=== PATIENT | female | born 1940 | race Caucasian/White ===

== ENCOUNTER 2022-05-18 17:00 | Inpatient (IN) ==
[2022-05-18] MEDS ORDERED: SODIUM CHLORIDE 0.9% 500 ML IV STA (17:55)
[2022-05-18] MEDS ORDERED: DILTIAZEM 50 MG/10 ML VIAL IV STA (17:56)
[2022-05-18 18:06] LABS: Basophils % 0.5 % (0.0-0.8); Hematocrit 26.6 VOL% (35.7-47.0); Hemoglobin 8.4 GM/DL (12.0-16.0); Immature Granulocytes % 0.2 %; Immature Granulocytes Absolute 0.02 #; Lymphocytes # 2.6 10*3/uL (1.4-4.0); Lymphocytes % 31.1 % (21.3-54.2); Mean Corpuscular HGB Conc 31.6 GM/DL (32-36); Mean Corpuscular Volume 89.6 FL (87-102); Mean Platelet Volume 10.3 FL (9.6-12.0); Monocytes # 0.7 10*3/uL (0.11-0.8); Neutrophils % 60.2 % (38.7-73.9); Platelet Count 359 T/CUMM (130-400); Red Blood Count 2.97 MC/CUMM (3.8-5.5); Red Cell Distribution Width 13.4 % (9.3-17.3); White Blood Count 8.37 T/CUMM (4-12)
[2022-05-18 18:13] LABS: INR 0.9; PT Patient Result 9.9 SECS (10.1-12.1)
[2022-05-18 18:28] LABS: Alanine Aminotransferase 18 U/L (13-56); Albumin 3.4 G/DL (3.4-5.0); Alkaline Phosphatase 89 U/L (45-117); Aspartate Amino Transferase 15 U/L (0-37); Bilirubin,Total < 0.39 MG/DL (0.20-1.00); Blood Urea Nitrogen 35 MG/DL (7-18); Calcium 9.8 MG/DL (8.5-10.1); Carbon Dioxide 28 MMOL/L (21-32); Chloride 106 MMOL/L (98-107); Glucose 150 MG/DL (74-106); Osmolality,Calculated 293.1 MOS/KG (273-304); Sodium 142 MMOL/L (136-145); Total Protein 6.4 G/DL (6.4-8.2)
[2022-05-18] MEDS ORDERED: MORPHINE 2 MG/1 ML SYRINGE IV PRN (20:02)
[2022-05-18] MEDS ORDERED: ONDANSETRON 4 MG/2 ML VIAL IV PRN (20:02)
[2022-05-18] MEDS ORDERED: hydrALAZINE 20 MG/1 ML VIAL IV PRN (20:02)
[2022-05-18] MEDS ORDERED: ACETAMINOPHEN 325 MG TABLET PO PRN (20:02)
[2022-05-18] MEDS ORDERED: FUROSEMIDE 40 MG/4 ML VIAL IV STA ×2 (20:16→20:41)
[2022-05-18 21:13] LABS: % Iron Saturation 5.2 % (18-50); Ferritin 7.9 ng/mL (8-252)
[2022-05-18 21:14] LABS: Folate > 24.00 NG/ML (5.38-24.0); Vitamin B12 644 PG/ML (211-911)
[2022-05-18 21:17] LABS: Thyroid Stimulating Hormone 0.978 uIU/ml (0.358-3.74)
[2022-05-18] MEDS: GABAPENTIN 100 MG CAPSULE PO SCH (21:26)
[2022-05-18] MEDS: PANTOPRAZOLE 40 MG VIAL IV SCH (21:27)
[2022-05-19 05:47] LABS: Basophils % 0.6 % (0.0-0.8); Hemoglobin 7.4 GM/DL (12.0-16.0); Immature Granulocytes % 0.3 %; Immature Granulocytes Absolute 0.02 #; Lymphocytes # 2.2 10*3/uL (1.4-4.0); Lymphocytes % 30.9 % (21.3-54.2); Mean Corpuscular HGB Conc 29.6 GM/DL (32-36); Mean Corpuscular Volume 93.3 FL (87-102); Mean Platelet Volume 10.5 FL (9.6-12.0); Monocytes # 0.6 10*3/uL (0.11-0.8); Monocytes % 7.7 % (1.7-12.7); Neutrophils % 60.5 % (38.7-73.9); Platelet Count 332 T/CUMM (130-400); Red Blood Count 2.68 MC/CUMM (3.8-5.5); Red Cell Distribution Width 13.6 % (9.3-17.3); White Blood Count 7.26 T/CUMM (4-12)
[2022-05-19] MEDS ORDERED: SODIUM CHLORIDE 0.9% 1,000 ML IV PRN (06:16)
[2022-05-19 06:17] LABS: Calcium 9.5 MG/DL (8.5-10.1); Osmolality,Calculated 293.1 MOS/KG (273-304); Potassium 4.4 MMOL/L (3.5-5.1)
[2022-05-19] MEDS: LEVOTHYROXINE 150 MCG TABLET PO SCH (08:14)
[2022-05-19] MEDS: CITALOPRAM 40 MG TABLET PO SCH (08:14)
[2022-05-19] MEDS: CHOLECALCIFEROL 1,000 UNIT TABLET PO SCH (08:15)
[2022-05-19] MEDS: GABAPENTIN 100 MG CAPSULE PO SCH ×2 (08:15→21:33)
[2022-05-19] MEDS: EZETIMIBE 10 MG TABLET PO SCH (08:15)
[2022-05-19] MEDS: ROSUVASTATIN 10 MG TABLET PO SCH (08:15)
[2022-05-19] MEDS: PANTOPRAZOLE 40 MG VIAL IV SCH ×2 (09:39→21:33)
[2022-05-19 11:47] LABS: Hematocrit 24.5 VOL% (35.7-47.0); Hemoglobin 7.7 GM/DL (12.0-16.0)
[2022-05-19] MEDS ORDERED: BISACODYL 5 MG TABLET PO ONE (12:00)
[2022-05-19] MEDS: DILTIAZEM CD 120 MG CAPSULE PO SCH (14:39)
[2022-05-19] MEDS ORDERED: POLYETHYLENE GLYCOL POWDER 255 GM BOTTLE PO ONE ×2 (18:00→20:00)
[2022-05-19 22:05] LABS: Hematocrit 29.2 VOL% (35.7-47.0); Hemoglobin 9.3 GM/DL (12.0-16.0)
[2022-05-20] MEDS: LEVOTHYROXINE 150 MCG TABLET PO SCH (05:04)
[2022-05-20 05:22] LABS: Basophils % 0.4 % (0.0-0.8); Hematocrit 32.4 VOL% (35.7-47.0); Hemoglobin 10.3 GM/DL (12.0-16.0); Immature Granulocytes % 0.2 %; Immature Granulocytes Absolute 0.02 #; Lymphocytes # 2.4 10*3/uL (1.4-4.0); Lymphocytes % 26.4 % (21.3-54.2); Mean Corpuscular HGB Conc 31.8 GM/DL (32-36); Mean Corpuscular Volume 88.5 FL (87-102); Mean Platelet Volume 10.3 FL (9.6-12.0); Monocytes # 0.6 10*3/uL (0.11-0.8); Monocytes % 6.8 % (1.7-12.7); Neutrophils % 66.2 % (38.7-73.9); Platelet Count 354 T/CUMM (130-400); Red Blood Count 3.66 MC/CUMM (3.8-5.5); Red Cell Distribution Width 13.8 % (9.3-17.3); White Blood Count 9.12 T/CUMM (4-12)
[2022-05-20 05:23] LABS: INR 0.9; PT Patient Result 10.2 SECS (10.1-12.1)
[2022-05-20 05:33] LABS: Calcium 9.7 MG/DL (8.5-10.1); Osmolality,Calculated 285.4 MOS/KG (273-304); Potassium 3.8 MMOL/L (3.5-5.1)
[2022-05-20] MEDS ORDERED: POLYETHYLENE GLYCOL POWDER 255 GM BOTTLE PO ONE (11:18)
[2022-05-20] MEDS: EZETIMIBE 10 MG TABLET PO SCH (12:07)
[2022-05-20] MEDS: CITALOPRAM 40 MG TABLET PO SCH (12:07)
[2022-05-20] MEDS: CHOLECALCIFEROL 1,000 UNIT TABLET PO SCH (12:07)
[2022-05-20] MEDS: GABAPENTIN 100 MG CAPSULE PO SCH ×2 (12:08→20:37)
[2022-05-20] MEDS: DILTIAZEM CD 120 MG CAPSULE PO SCH (12:08)
[2022-05-20] MEDS: ROSUVASTATIN 10 MG TABLET PO SCH (12:08)
[2022-05-20] MEDS: PANTOPRAZOLE 40 MG VIAL IV SCH ×2 (12:10→20:36)
[2022-05-20] MEDS: LACTATED RINGERS 1,000 ML IV SCH (12:10)
[2022-05-20] MEDS: FERRIC GLUCONATE COMPLEX 125 MG in SODIUM CHLORIDE 0.9% 100 ML IV SCH (20:36)
[2022-05-21 03:20] LABS: Basophils % 0.2 % (0.0-0.8); Hemoglobin 9.2 GM/DL (12.0-16.0); Immature Granulocytes % 0.3 %; Immature Granulocytes Absolute 0.03 #; Lymphocytes # 1.2 10*3/uL (1.4-4.0); Lymphocytes % 13.3 % (21.3-54.2); Mean Corpuscular HGB Conc 31.7 GM/DL (32-36); Mean Corpuscular Volume 88.1 FL (87-102); Mean Platelet Volume 10.1 FL (9.6-12.0); Monocytes # 0.8 10*3/uL (0.11-0.8); Monocytes % 8.4 % (1.7-12.7); Neutrophils % 77.8 % (38.7-73.9); Platelet Count 321 T/CUMM (130-400); Red Blood Count 3.29 MC/CUMM (3.8-5.5); Red Cell Distribution Width 13.6 % (9.3-17.3); White Blood Count 8.98 T/CUMM (4-12)
[2022-05-21 03:27] LABS: Calcium 9.5 MG/DL (8.5-10.1); Potassium 3.6 MMOL/L (3.5-5.1)
[2022-05-21 05:10] LABS: Arterial Base Excess iSTAT 4 MMOL/L (-2.5-2.5); Arterial Bicarbonate iSTAT 27.5 MMOL/L (20-26); Arterial O2 Saturation iSTAT 96 % (95-100); Arterial PCO2 iSTAT 39 MM HG (35-48); Arterial PO2 iSTAT 79 MM HG (80-95); Arterial Total CO2 iSTAT 29 MMO/L (23-27); Arterial pH iSTAT 7.459 (7.35-7.45)
[2022-05-21] MEDS: LEVOTHYROXINE 150 MCG TABLET PO SCH (06:13)
[2022-05-21] MEDS ORDERED: ALBUTEROL/IPRATROPIUM 3 ML NEB RESP TX ONE (09:21)
[2022-05-21] MEDS ORDERED: LIDOCAINE 2% 5 ML VIAL ONE (10:16)
[2022-05-21] MEDS ORDERED: propofoL 200 MG/20 ML VIAL IV ONE (10:16)
[2022-05-21] MEDS ORDERED: ETOMIDATE 20 MG/10 ML VIAL IV ONE (10:16)
[2022-05-21] MEDS ORDERED: MIDAZOLAM 2 MG/2 ML VIAL ONE (10:29)
[2022-05-21] MEDS: LACTATED RINGERS 1,000 ML IV SCH (11:08)
[2022-05-21] MEDS: DILTIAZEM CD 120 MG CAPSULE PO SCH (16:49)
[2022-05-21] MEDS: CITALOPRAM 40 MG TABLET PO SCH (16:49)
[2022-05-21] MEDS: EZETIMIBE 10 MG TABLET PO SCH (16:49)
[2022-05-21] MEDS: GABAPENTIN 100 MG CAPSULE PO SCH ×2 (16:49→21:17)
[2022-05-21] MEDS: ROSUVASTATIN 10 MG TABLET PO SCH (16:49)
[2022-05-21] MEDS: PANTOPRAZOLE 40 MG VIAL IV SCH ×2 (16:50→21:16)
[2022-05-21] MEDS: CHOLECALCIFEROL 1,000 UNIT TABLET PO SCH (16:50)
[2022-05-21] MEDS: FERRIC GLUCONATE COMPLEX 125 MG in SODIUM CHLORIDE 0.9% 100 ML IV SCH (16:54)
[2022-05-22 05:20] LABS: Basophils % 0.2 % (0.0-0.8); Hematocrit 28.2 VOL% (35.7-47.0); Hemoglobin 8.6 GM/DL (12.0-16.0); Immature Granulocytes % 0.6 %; Immature Granulocytes Absolute 0.06 #; Lymphocytes # 1.4 10*3/uL (1.4-4.0); Lymphocytes % 14.8 % (21.3-54.2); Mean Corpuscular HGB Conc 30.5 GM/DL (32-36); Mean Corpuscular Volume 90.7 FL (87-102); Monocytes % 10.8 % (1.7-12.7); Neutrophils % 73.6 % (38.7-73.9); Platelet Count 294 T/CUMM (130-400); Red Blood Count 3.11 MC/CUMM (3.8-5.5); Red Cell Distribution Width 14.1 % (9.3-17.3); White Blood Count 9.41 T/CUMM (4-12)
[2022-05-22] MEDS: LEVOTHYROXINE 150 MCG TABLET PO SCH (05:38)
[2022-05-22 05:44] LABS: Osmolality,Calculated 290.8 MOS/KG (273-304); Potassium 3.7 MMOL/L (3.5-5.1)
[2022-05-22] MEDS ORDERED: ALBUTEROL/IPRATROPIUM 3 ML NEB RESP TX STA (09:17)
[2022-05-22] MEDS: LACTATED RINGERS 1,000 ML IV SCH (09:18)
[2022-05-22] MEDS: CHOLECALCIFEROL 1,000 UNIT TABLET PO SCH (11:49)
[2022-05-22] MEDS: ROSUVASTATIN 10 MG TABLET PO SCH (11:49)
[2022-05-22] MEDS: PANTOPRAZOLE 40 MG VIAL IV SCH ×2 (11:50→20:25)
[2022-05-22] MEDS: DILTIAZEM CD 120 MG CAPSULE PO SCH (11:50)
[2022-05-22] MEDS: GABAPENTIN 100 MG CAPSULE PO SCH ×2 (11:50→20:25)
[2022-05-22] MEDS: CITALOPRAM 40 MG TABLET PO SCH (11:50)
[2022-05-22] MEDS: EZETIMIBE 10 MG TABLET PO SCH (11:50)
[2022-05-22] MEDS: FERRIC GLUCONATE COMPLEX 125 MG in SODIUM CHLORIDE 0.9% 100 ML IV SCH (11:50)
[2022-05-23 05:19] LABS: Basophils % 0.3 % (0.0-0.8); Hematocrit 28.4 VOL% (35.7-47.0); Hemoglobin 8.7 GM/DL (12.0-16.0); Immature Granulocytes % 0.3 %; Immature Granulocytes Absolute 0.03 #; Lymphocytes # 1.7 10*3/uL (1.4-4.0); Lymphocytes % 18.4 % (21.3-54.2); Mean Corpuscular HGB Conc 30.6 GM/DL (32-36); Mean Corpuscular Volume 91.9 FL (87-102); Mean Platelet Volume 10.2 FL (9.6-12.0); Monocytes # 0.9 10*3/uL (0.11-0.8); Monocytes % 9.4 % (1.7-12.7); Neutrophils % 71.6 % (38.7-73.9); Platelet Count 282 T/CUMM (130-400); Red Blood Count 3.09 MC/CUMM (3.8-5.5); White Blood Count 9.17 T/CUMM (4-12)
[2022-05-23 05:36] LABS: Calcium 9.4 MG/DL (8.5-10.1); Osmolality,Calculated 284.3 MOS/KG (273-304); Potassium 3.8 MMOL/L (3.5-5.1)
[2022-05-23] MEDS: LEVOTHYROXINE 150 MCG TABLET PO SCH (06:01)
[2022-05-23] MEDS: ROSUVASTATIN 10 MG TABLET PO SCH (09:06)
[2022-05-23] MEDS: EZETIMIBE 10 MG TABLET PO SCH (09:07)
[2022-05-23] MEDS: CITALOPRAM 40 MG TABLET PO SCH (09:07)
[2022-05-23] MEDS: CHOLECALCIFEROL 1,000 UNIT TABLET PO SCH (09:07)
[2022-05-23] MEDS: DILTIAZEM CD 120 MG CAPSULE PO SCH (09:08)
[2022-05-23] MEDS: GABAPENTIN 100 MG CAPSULE PO SCH ×2 (09:09→21:07)
[2022-05-23] MEDS: PANTOPRAZOLE 40 MG VIAL IV SCH ×2 (09:09→21:07)
[2022-05-23] MEDS: FERRIC GLUCONATE COMPLEX 125 MG in SODIUM CHLORIDE 0.9% 100 ML IV SCH (09:40)
[2022-05-24 04:46] LABS: Basophils % 0.4 % (0.0-0.8); Hematocrit 27.4 VOL% (35.7-47.0); Hemoglobin 8.4 GM/DL (12.0-16.0); Immature Granulocytes % 0.4 %; Immature Granulocytes Absolute 0.04 #; Lymphocytes # 1.5 10*3/uL (1.4-4.0); Lymphocytes % 16.7 % (21.3-54.2); Mean Corpuscular HGB Conc 30.7 GM/DL (32-36); Mean Corpuscular Volume 91.3 FL (87-102); Mean Platelet Volume 10.1 FL (9.6-12.0); Monocytes # 0.8 10*3/uL (0.11-0.8); Monocytes % 8.8 % (1.7-12.7); Neutrophils % 73.7 % (38.7-73.9); Platelet Count 285 T/CUMM (130-400); Red Cell Distribution Width 14.4 % (9.3-17.3); White Blood Count 9.16 T/CUMM (4-12)
[2022-05-24] MEDS: LEVOTHYROXINE 150 MCG TABLET PO SCH (05:02)
[2022-05-24 05:07] LABS: Osmolality,Calculated 285.1 MOS/KG (273-304); Potassium 3.6 MMOL/L (3.5-5.1)
[2022-05-24] MEDS: GABAPENTIN 100 MG CAPSULE PO SCH ×2 (10:35→20:27)
[2022-05-24] MEDS: CHOLECALCIFEROL 1,000 UNIT TABLET PO SCH (10:35)
[2022-05-24] MEDS: CITALOPRAM 40 MG TABLET PO SCH (10:35)
[2022-05-24] MEDS: PANTOPRAZOLE 40 MG VIAL IV SCH ×2 (10:35→20:27)
[2022-05-24] MEDS: ROSUVASTATIN 10 MG TABLET PO SCH (10:35)
[2022-05-24] MEDS: EZETIMIBE 10 MG TABLET PO SCH (10:35)
[2022-05-24] MEDS: DILTIAZEM CD 120 MG CAPSULE PO SCH (10:35)
[2022-05-24] MEDS: FERRIC GLUCONATE COMPLEX 125 MG in SODIUM CHLORIDE 0.9% 100 ML IV SCH (10:36)
[2022-05-25] MEDS: LEVOTHYROXINE 150 MCG TABLET PO SCH (05:05)
[2022-05-25 06:17] LABS: Basophils % 0.2 % (0.0-0.8); Eosinophils % 0.1 % (0.00-10.9); Hematocrit 28.1 VOL% (35.7-47.0); Hemoglobin 8.6 GM/DL (12.0-16.0); Immature Granulocytes % 0.3 %; Immature Granulocytes Absolute 0.03 #; Lymphocytes # 1.3 10*3/uL (1.4-4.0); Lymphocytes % 14.1 % (21.3-54.2); Mean Corpuscular HGB Conc 30.6 GM/DL (32-36); Mean Corpuscular Volume 92.4 FL (87-102); Mean Platelet Volume 10.8 FL (9.6-12.0); Monocytes # 0.8 10*3/uL (0.11-0.8); Monocytes % 8.5 % (1.7-12.7); Neutrophils % 76.8 % (38.7-73.9); Platelet Count 264 T/CUMM (130-400); Red Blood Count 3.04 MC/CUMM (3.8-5.5); Red Cell Distribution Width 14.6 % (9.3-17.3); White Blood Count 9.27 T/CUMM (4-12)
[2022-05-25 06:36] LABS: Calcium 9.5 MG/DL (8.5-10.1); Osmolality,Calculated 289.8 MOS/KG (273-304); Potassium 3.8 MMOL/L (3.5-5.1)
[2022-05-25] MEDS: ROSUVASTATIN 10 MG TABLET PO SCH (09:21)
[2022-05-25] MEDS: EZETIMIBE 10 MG TABLET PO SCH (09:22)
[2022-05-25] MEDS: CITALOPRAM 40 MG TABLET PO SCH (09:22)
[2022-05-25] MEDS: CHOLECALCIFEROL 1,000 UNIT TABLET PO SCH (09:23)
[2022-05-25] MEDS: DILTIAZEM CD 120 MG CAPSULE PO SCH (09:24)
[2022-05-25] MEDS: GABAPENTIN 100 MG CAPSULE PO SCH (09:24)
[2022-05-25] MEDS: FERRIC GLUCONATE COMPLEX 125 MG in SODIUM CHLORIDE 0.9% 100 ML IV SCH (09:31)
[2022-05-25] MEDS: PANTOPRAZOLE 40 MG VIAL IV SCH (09:39)
[2022-05-25] MEDS ORDERED: FUROSEMIDE 40 MG/4 ML VIAL IV ONE (11:38)
[2022-05-25 13:02] VITALS: BP 134/75
== END 2022-05-25 14:45 | disposition home health service (06) | DRG 377 ==
LOC: N.ED 17:00 → N.EDINP 17:00 → N.2W 20:49 → SUATTDRO 05-19 08:11 → N.TELES 05-19 22:24
PROVIDERS: ADMIT Internal Medicine; ATTEND Internal Medicine